=== PATIENT | male | born 1960 | race Two or more races ===

== ENCOUNTER → 2018-06-27 | Outpatient (CLI) | payer OTHER ==
[~2018-06-27] VITALS: Ht 175.3 cm; Wt 106.1 kg
== END | disposition home or self-care (01) ==
LOC: Rad HDHVI 13:24
PROVIDERS: ATTEND Internal Medicine Cardiovascular Disease
DX: I35.1 Nonrheumatic aortic (valve) insufficiency (principal); E11.9 Type 2 diabetes mellitus without complications; I20.0 Unstable angina; I35.0 Nonrheumatic aortic (valve) stenosis; I34.0 Nonrheumatic mitral (valve) insufficiency; R06.02 Shortness of breath
CPT/HCPCS: 78452; 93017; 93306; 96374; A9500